=== PATIENT | female | born 1965 | race Asian ===

== ENCOUNTER 2025-03-15 10:39 | Outpatient (AMB) | payer MEDICAID, SELFPAY ==
[2025-03-15 11:16] VITALS: BP 116/67; PULSE 83; RESP 18; TEMP 36.8; O2SAT 100; BMI 19.1
--- NOTE | 2025-03-15 11:16 | ACNOTE_ITS ---
Vital Signs 03/15/25 11:16 Height 1.73 m Height Method Stated Weight 57.266 kg Weight Measurement Method Standing Scale BMI 19.1 BP 116/67 Blood Pressure Source Automatic Cuff Blood Pressure Location Right Upper Arm Position Sitting Respiration 18 Pulse 83 Pulse Source Monitor Temp 98.2 F Temp Source Temporal Artery Scan Pulse Oximetry (%) 100 Oxygen Delivery Method Room Air Allergies/Meds Allergies & Medications Allergies NKA* Allergy (Uncoded 03/16/25 13:14) Medication Reconciliation Amlodipine Besylate 1 tab PO QDAY ##30 11/01/17 [History Confirmed 03/16/25] Aspirin Ec * (ECOTRIN *) 81 mg PO QDAY ##0 11/01/17 [History Confirmed 03/16/25] Insulin Glargine,Hum.rec.anlog (Basaglar Kwikpen U-100) 40 units SQ QDAY ##15 11/01/17 [History Confirmed 03/16/25] benazepril 40 mg tablet (Lotensin) 40 mg PO QDAY #0 tabs 11/01/17 [History Confirmed 03/16/25] glipizide 10 mg tablet 10 mg PO BID #0 tabs 11/01/17 [History Confirmed 03/16/25] hydrochlorothiazide 25 mg tablet 25 mg PO QAM #0 tabs 11/01/17 [History Confirmed 03/16/25] liraglutide 0.6 mg/0.1 mL (18 mg/3 mL) subcutaneous pen injector (Victoza 2-Massimo) 6 units subcut QDAY ##6 11/01/17 [History Confirmed 03/16/25] metoprolol tartrate 25 mg tablet 1 tab PO BID ##60 11/01/17 [History Confirmed 03/16/25] sitagliptin phosphate 100 mg tablet (Januvia) 1 tab PO ##30 11/01/17 [History Confirmed 03/16/25] Hydrocodone/Acetaminophen * (NORCO 7.5/325 *) 1 tab PO Q6H PRN ABDOMINAL PAIN #30 tabs 11/02/17 [Rx Confirmed 03/16/25] docusate sodium 100 mg capsule (Colace) 100 mg PO BID #60 caps 11/02/17 [Rx Confirmed 03/16/25] amlodipine 10 mg tablet 10 mg PO DAILY 02/04/25 [History Confirmed 03/16/25] dulaglutide 0.75 mg/0.5 mL subcutaneous pen injector (Trulicity) 0.75 mg subcut .weekly 02/04/25 [History Confirmed 03/16/25] insulin glargine 100 unit/mL (3 mL) subcutaneous pen (Basaglar KwikPen U-100 Insulin) 28 unit subcut QAM 02/04/25 [History Confirmed 03/16/25] metoprolol tartrate 100 mg tablet 100 mg PO BID 02/04/25 [History Confirmed 03/16/25] cyclobenzaprine 5 mg tablet 5 mg PO TID PRN muscle spasm #90 tabs 03/01/25 [Rx Confirmed 03/16/25] triamcinolone acetonide 0.5 % topical cream 1 applic topical BID #15 grams 0 03/01/25 [Rx Confirmed 03/16/25] MA Intake Visit Data Collection New Patient or Established: Established Patient (seen at [facility] within 3 years) Seen by Clinical Staff ONLY (RN/MA): No Pain Present Currently: No Pain scale:: 0 Pain Scale Used: Rivera-Cardoza/Numerical [employer] Merchand[employer] Required: No PCP or OBGYN visit in last 3 months: No Hx Now: No Do You Feel Safe at Home: Yes Authorities Contacted: N/A Smoking Status Smoking Status: Never smoker Immunization / Flu Flu Vaccine in the Last 12 Months: No Flu Vaccine Exclusion Criteria: No Exclusion Criteria Past Medical History Past Medical History NEUROLOGIC: Negative Seizures CARDIAC: Positive Cardiac Disorders and Hypertension; Negative Congestive Heart Failure RESPIRATORY: Negative Chronic Obstructive Pulmonary Disease (COPD) or Asthma GENITOURINARY: Negative Renal Disease ENDOCRINE: Positive Diabetes Mellitus Type 2; Negative Diabetes Mellitus Type 1 HEMATOLOGIC: Positive Anemia; Negative Sickle Cell Disease OTHER HISTORY: Negative Blood Transfusions or Anesthesia Reactions Social History SMOKING STATUS: Smoking status: Never smoker ALCOHOL: Alcohol Intake: Never HOUSING: Housing: House LIVES WITH: Lives With: Family Patient Cristobal Jackson Social History Living Situation History Housing: House Housing Other:: Pt lives with family Tobacco History Smoking Status: Never smoker Alcohol History Alcohol Intake: Never Domestic Abuse History Do You Feel Safe at Home: Yes Review of Systems Report any current symptoms Only answer those that you have currently: Past Medical History Past Medical History Have you ever been diagnosed with any of the following: Neurological Problems Seizures: No Cardiology Problems Congestive Heart Failure: No Hypertension: Yes Respiratory Problems Chronic Obstructive Pulmonary Disease (COPD): No Asthma: No Genital/Urinary Problems Renal Disease: No Endocrine Problems Diabetes Mellitus Type 1: No Diabetes Mellitus Type 2: Yes Blood Problems Anemia: Yes Sickle Cell Disease: No Other Problems Blood Transfusions: No Anesthesia Reactions: No History of Present Illness HPI Narrative Loni is a 59 y/o female comes in for follow-up of labs. Patient reports she is doing well. It was discussed with the patient that her copper labs were unremarkable and to hold on further workup. 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 She reports that she is going to see a GI in [place] soon and is pending appointment approval. She also says that she is going to follow-up with her kidney doctor, Dr. Mckeon in regards to her hypercalcemia in a couple of weeks. She also says she is going to continue to check her sugars as her fasting blood sugar on her recent lab was elevated in the 300s. She says that her sugar normally at home is 90 and today it was 95 when she checked. She also says that she was taking medicines for H. pylori, triple pump therapy, however was unable to tolerate amoxicillin due to diarrhea. She is agreeable to retry taking amoxicillin as it was informed to her that quad therapy could also have similar side effects. She has no other complaints at this time. Review of Systems Review of Systems Narrative Review of Systems: Constitutional: No fever, chills, fatigue, weakness, weight loss HEENT: No eye pain, vision loss, ear pain, hearing loss, dysphagia, Cardiovascular: No chest pain, palpitations, edema, pain with walking Respiratory: No cough, shortness of breath, wheezing GI: No NVD, abdominal pain, constipation, blood in stool, loss of appetite, heartburn Extremities: No presence of pitting edema MSK: No back pain, joint pain, joint swelling Neuro: No dizziness, numbness, weakness, headaches, seizures, tremors Psych: No anxiety, depression Objective/Exam Narrative Physical exam: General: AAOx3, NAD, HEENT: Moist mucous membranes, conjunctiva clear, EOMI, PERRLA, Cardiovascular: S1, S2, radial pulses +2 bilat, RRR Pulmonary: CTAB bilat no cough, no wheezing GI: No tenderness to light or deep palpitation, no guarding, rigidity, rebound tenderness or distension Extremities: No presence of trace or pitting edema in lower extremities bilaterally, dorsalis pedis pulses +2 bilaterally Back: Some pain to palitation in lumbar spine Skin: Rash near R clavicular region, flat, irregular borders, additional oval rash present along lumbar spine with no ulceration Neuro: AAOx3, no focal motor or sensory deficits in the UE or LE bilat Psych: Good judgement, thought and behavior Assessment & Plan Diagnosis / Problem List (1) Rash: Status: Acute Assessment & Plan: Improving Could be nummular eczema Plan: Continue with Kenalog cream Dermatology referral (2) Hypercalcemia: Status: Acute Assessment & Plan: Calcium on recent check was 11.6 Patient may need to start bisphosphonate, however will defer to nephrology PTH appropriately responding at it is low Patient to get colonoscopy outpatient for further workup Plan: Follow-up with nephrology Will follow-up with CMP (3) H. pylori infection: Status: Acute Assessment & Plan: Patient stopped taking amoxicillin due to diarrhea Patient still taking PPI and clarithromycin Informed patient to resume taking triple pump therapy including amoxicillin Plan: Resuming triple pump therapy Will do follow-up urea breath test 4 weeks after therapy (4) Excessive copper intake: Status: Acute Assessment & Plan: Ceruoplasmin and other copper labs unremarkable Plan: Will hold on further workup (5) Diabetes: Status: Acute Assessment & Plan: Fasting blood sugar on recent check was 322 Plan: Recommend to check basal sugar levels for couple of days and to record log Will adjust if needed Orders: Referrals Dermatology R21 - Rash and other nonspecific skin eruption Office Procedures [facility] Level of Care Nursing/Assessment Patient Status: Established Patient Nursing Assessment/Reassessment: Medication Reconciliation, Update PMH in EMR and Vital Signs Coordination of Care: Complex Care and Chronic Disease 1-5, Consent,records obtained, informed consent, Education Simp Pt/Fam, 1 Ins Authorization, Ref for ancillary service and Staff clarify orders Established Patient Charge Established Patient Point Assignment: 120 Established Patient Point Charge: Level 4 (120-155)
== END 2025-03-15 12:01 | disposition home or self-care (01) ==
LOC: HODAHC 10:39
PROVIDERS: Supervising Provider Internal Medicine
DX: R21 Rash and other nonspecific skin eruption (principal); E11.9 Type 2 diabetes mellitus without complications; E83.52 Hypercalcemia; B96.81 Helicobacter pylori [H. pylori] as the cause of diseases classified elsewhere
CPT/HCPCS: 99214; G0463

== ENCOUNTER → 2025-04-04 | Outpatient (CLI) | payer MEDICAID, SELFPAY ==
--- NOTE | 2025-04-04 13:15 | XR_ITS ---
Examination: Screening digital mammography, bilateral Computer aided detection 3-D breast Tomosynthesis, bilateral Date and time of exam: April 04, 2025 1334 hours Compared to mammograms dating to 06/12/2014 Indication: Screening Technique: Nonmagnified MLO, CC views of the breasts to been obtained, reconstructed from 3-D Tomosynthesis images. R2 computer aided detection program utilized for evaluation of suspicious masses and/or abnormal calcifications. 3-D Tomosynthesis images obtained. Findings: The breasts are heterogeneously dense, which may obscure small masses Benign calcifications. 14 mm focal asymmetry inner right breast CC view, 6.6 cm from the nipple Impression: BI-RADS Category 0: Incomplete: Need additional imaging evaluation Recommend follow-up spot tomographic films inner upper quadrant right breast to assess the 14 mm focal asymmetry inner right breast on the CC view as well as right breast sonography to complete the workup
== END | disposition home or self-care (01) ==
PROVIDERS: PCP Physician Assistant; Referring Provider Family Medicine; Visit Provider Family Medicine
DX: Z12.31 Encounter for screening mammogram for malignant neoplasm of breast (principal); N64.89 Other specified disorders of breast
CPT/HCPCS: 77063; 77067

== ENCOUNTER 2025-08-22 12:54 | Outpatient (AMB) | payer MEDICAID, SELFPAY ==
[2025-08-22 13:11] VITALS: BP 169/78; PULSE 82; RESP 17; TEMP 36.5; O2SAT 98; BMI 22.0
--- NOTE | 2025-08-22 13:11 | PD.RESCLINIC ---
Vital Signs 08/22/25 13:11 Height 1.73 m Height Method Stated Weight 65.941 kg Weight Measurement Method Standing Scale BMI 22.0 BP 169/78 H Blood Pressure Source Automatic Cuff Blood Pressure Location Left Upper Arm Position Sitting Respiration 17 Pulse 82 Pulse Source Monitor Temp 97.7 F Temp Source Temporal Artery Scan Pulse Oximetry (%) 98 Oxygen Delivery Method Room Air Allergies/Meds Allergies & Medications Allergies NKA* Allergy (Uncoded 08/22/25 13:11) Medication Reconciliation Amlodipine Besylate 1 tab PO QDAY ##30 11/01/17 [History Confirmed 08/22/25] Aspirin Ec * (ECOTRIN *) 81 mg PO QDAY ##0 11/01/17 [History Confirmed 08/22/25] Insulin Glargine,Hum.rec.anlog (Basaglar Kwikpen U-100) 40 units SQ QDAY ##15 11/01/17 [History Confirmed 08/22/25] benazepril 40 mg tablet (Lotensin) 40 mg PO QDAY #0 tabs 11/01/17 [History Confirmed 08/22/25] glipizide 10 mg tablet 10 mg PO BID #0 tabs 11/01/17 [History Confirmed 08/22/25] hydrochlorothiazide 25 mg tablet 25 mg PO QAM #0 tabs 11/01/17 [History Confirmed 08/22/25] liraglutide 0.6 mg/0.1 mL (18 mg/3 mL) subcutaneous pen injector (Victoza 2-Massimo) 6 units subcut QDAY ##6 11/01/17 [History Confirmed 08/22/25] metoprolol tartrate 25 mg tablet 1 tab PO BID ##60 11/01/17 [History Confirmed 08/22/25] sitagliptin phosphate 100 mg tablet (Januvia) 1 tab PO ##30 11/01/17 [History Confirmed 08/22/25] Hydrocodone/Acetaminophen * (NORCO 7.5/325 *) 1 tab PO Q6H PRN ABDOMINAL PAIN #30 tabs 11/02/17 [Rx Confirmed 08/22/25] docusate sodium 100 mg capsule (Colace) 100 mg PO BID #60 caps 11/02/17 [Rx Confirmed 08/22/25] amlodipine 10 mg tablet 10 mg PO DAILY 02/04/25 [History Confirmed 08/22/25] dulaglutide 0.75 mg/0.5 mL subcutaneous pen injector (Trulicity) 0.75 mg subcut .weekly 02/04/25 [History Confirmed 08/22/25] insulin glargine 100 unit/mL (3 mL) subcutaneous pen (Basaglar KwikPen U-100 Insulin) 28 unit subcut QAM 02/04/25 [History Confirmed 08/22/25] metoprolol tartrate 100 mg tablet 100 mg PO BID 02/04/25 [History Confirmed 08/22/25] triamcinolone acetonide 0.5 % topical cream 1 applic topical BID #15 grams 03/01/25 [Rx Confirmed 08/22/25] cyclobenzaprine 5 mg tablet 5 mg PO TID PRN muscle spasm #90 tabs 08/22/25 [Rx] MA Intake Visit Data Collection Pain Present Currently: No Pain scale:: 0 PCP or OBGYN visit in last 3 months: Yes Smoking Status Smoking Status: Never smoker Immunization / Flu Flu Vaccine in the Last 12 Months: No Flu Vaccine Exclusion Criteria: Refused by Patient Past Medical History Past Medical History NEUROLOGIC: Negative Seizures CARDIAC: Positive Cardiac Disorders and Hypertension; Negative Congestive Heart Failure RESPIRATORY: Negative Chronic Obstructive Pulmonary Disease (COPD) or Asthma GENITOURINARY: Negative Renal Disease ENDOCRINE: Positive Diabetes Mellitus Type 2; Negative Diabetes Mellitus Type 1 HEMATOLOGIC: Positive Anemia; Negative Sickle Cell Disease OTHER HISTORY: Negative Blood Transfusions or Anesthesia Reactions Social History SMOKING STATUS: Smoking status: Never smoker ALCOHOL: Alcohol Intake: Never HOUSING: Housing: House LIVES WITH: Lives With: Family Patient Cristobal Jackson Social History Living Situation History Housing: House Housing Other:: Pt lives with family Tobacco History Smoking Status: Never smoker Alcohol History Alcohol Intake: Never Review of Systems Report any current symptoms Only answer those that you have currently: Past Medical History Past Medical History Have you ever been diagnosed with any of the following: Neurological Problems Seizures: No Cardiology Problems Congestive Heart Failure: No Hypertension: Yes Respiratory Problems Chronic Obstructive Pulmonary Disease (COPD): No Asthma: No Genital/Urinary Problems Renal Disease: No Endocrine Problems Diabetes Mellitus Type 1: No Diabetes Mellitus Type 2: Yes Blood Problems Anemia: Yes Sickle Cell Disease: No Other Problems Blood Transfusions: No Anesthesia Reactions: No History of Present Illness HPI Holland Ivey is a 60 y/o female with PMHx of DM2, and CKD stage IIIa, who comes in for evaluation for a follow up. Pt reports that she is currently going to see a plater printed circuit board panels, Dr. Ward, in [place] who is going to work her up with stress tests and other tests. She is continuing to see her kidney doctor, Dr. Prather, who is continuing to manage her and recently put her on Vitamin D3 1000 mg every day and told her to take Iron tablets every day for her anemia. She says she is going to get seen by Dr. Gardiner for evaluation for a colonoscopy to be done in September. She is also going to get a mammogram and US in September. She says she completed her H pylori medicines but has not retested. No other complaints at this time. Review of Systems Review of Systems Narrative Review of Systems: Constitutional: No fever, chills, fatigue, weakness, weight loss HEENT: No eye pain, vision loss, ear pain, hearing loss, dysphagia, Cardiovascular: No chest pain, palpitations, edema, pain with walking Respiratory: No cough, shortness of breath, wheezing GI: No NVD, abdominal pain, constipation, blood in stool, loss of appetite, heartburn Extremities: No presence of pitting edema MSK: No back pain, joint pain, joint swelling Neuro: No dizziness, numbness, weakness, headaches, seizures, tremors Psych: No anxiety, depression Objective/Exam Narrative Physical exam: General: AAOx3, NAD, Telugu speaking female HEENT: Moist mucous membranes, conjunctiva clear, EOMI, PERRLA, Cardiovascular: S1, S2, radial pulses +2 bilat, RRR Pulmonary: CTAB bilat no cough, no wheezing GI: No tenderness to light or deep palpitation, no guarding, rigidity, rebound tenderness or distension Extremities: No presence of trace or pitting edema in lower extremities bilaterally, dorsalis pedis pulses +2 bilaterally Neuro: AAOx3, no focal motor or sensory deficits in the UE or LE bilat Psych: Good judgement, thought and behavior Assessment & Plan Diagnosis / Problem List (1) H. pylori infection: Status: Acute Assessment & Plan: Completed triple therapy, will not be getting endoscopy for confirmation Needs to retest to confirm for infection eradication Plan: Urea breath test to confirm bug eradication (2) Iron deficiency anemia: Status: Acute Qualifiers: Iron deficiency anemia type: inadequate dietary iron intake Qualified Code(s): D50.8 - Other iron deficiency anemias Assessment & Plan: Chronic Related to CKD Plan: Currently taking ferous sulfate 325 mg every day by mouth (3) Chronic back pain: Status: Acute Qualifiers: Back pain location: low back pain Back pain laterality: bilateral Sciatica presence: without sciatica Qualified Code(s): M54.50 - Low back pain, unspecified; G89.29 - Other chronic pain Assessment & Plan: Chronic Will hold off on imaging at this time. Plan: Flexeril 5 mg TID PRN Orders: Orders Urea Breath Test Today A04.8 - Other specified bacterial intestinal infections Office Procedures [facility] Level of Care Nursing/Assessment Patient Status: Established Patient Nursing Assessment/Reassessment: Medication Reconciliation, Update PMH in EMR and Vital Signs Coordination of Care: Complex Care and Chronic Disease 1-5, Education Complex Pt/Fam, Results/Orders obtained and Staff clarify orders Established Patient Charge Established Patient Point Assignment: 90 Established Patient Point Charge: EP Level 3 (80-115)
== END 2025-08-22 13:33 | disposition home or self-care (01) ==
LOC: HODAHC 12:54
PROVIDERS: Supervising Provider Internal Medicine
DX: D50.9 Iron deficiency anemia, unspecified (principal); B96.81 Helicobacter pylori [H. pylori] as the cause of diseases classified elsewhere; G89.29 Other chronic pain; M54.50 Low back pain, unspecified; E11.22 Type 2 diabetes mellitus with diabetic chronic kidney disease; N18.31 Chronic kidney disease, stage 3a
CPT/HCPCS: 99213; G0463

== ENCOUNTER → 2025-09-18 | Outpatient (CLI) | payer MEDICAID, SELFPAY ==
--- NOTE | 2025-09-18 12:30 | XR_ITS ---
Examination: Breast ultrasound, unilateral, right Date and time of exam: September 18, 2025, 1251 hours INDICATIONS: Mammographic April 04, 2000 2514 mm focal asymmetry in the right breast CC view, 6.6 cm from the nipple Technique: Real-time wallace scale ultrasonographic imaging performed right breast including all 4 quadrants as well as nipple retroareolar and axillary region. Findings: 10:00 cyst 7 x 8 mm 10:00 calcification 4 x 4 millimeter 10:00 cyst 5 x 3 mm IMPRESSION: BI-RADS Category 2: Benign findings
--- NOTE | 2025-09-18 13:00 | XR_ITS ---
Examination: Diagnostic digital mammography, unilateral, right Computer aided detection 3-D breast Tomosynthesis, unilateral Date and time of exam: September 18, 2025, 1240 hours INDICATIONS: Mammogram April 04, 2025 14 mm focal asymmetry inner right breast CC view, 6.6 cm from the nipple Technique: Nonmagnified MLO, CC views of the right breast have been obtained, reconstructed from 3-D Tomosynthesis images. R2 computer aided detection program utilized for evaluation of suspicious masses and/or abnormal calcifications. 3-D Tomosynthesis images obtained. Findings: The breast is heterogeneously dense, which may obscure small masses There are 2 focal asymmetries inner mid to lower right breast, measuring 19 mm, 9 mm Impression: BI-RADS category 3: Probably benign findings Continued 6-month right mammogram follow-up strongly recommended to document stability of focal asymmetry as described above
== END | disposition home or self-care (01) ==
LOC: CDIM 12:23
PROVIDERS: Referring Provider Physician Assistant; Visit Provider Physician Assistant
DX: R92.331 Mammographic heterogeneous density, right breast (principal); N64.89 Other specified disorders of breast
CPT/HCPCS: 76641; 77061; 77065; G0279